=== PATIENT | female | born 1985 | race Caucasian/White ===

== ENCOUNTER → 2018-05-20 | Outpatient (CLI) | payer OTHER ==
[~2018-05-20] VITALS: Ht 167.6 cm; Wt 67.9 kg
[~2018-05-20] MED LIST: FLINTSTONES GU1 EACH PO; NAPROSYN500 MG PO; NOHOMEMEDS; VICOPROFEN1 TABLET PO; ZOFRAN4 MG PO
[2018-05-20 14:05] VITALS: BP 124/72
== END | disposition home or self-care (01) ==
LOC: IVINF 11:30
DX: Z34.83 Encounter for supervision of other normal pregnancy, third trimester (principal); Z31.82 Encounter for Rh incompatibility status; Z3A.28 28 weeks gestation of pregnancy; Z67.21 Type B blood, Rh negative
CPT/HCPCS: J2790